=== PATIENT | female | born 1975 | race Caucasian/White ===

== ENCOUNTER 2022-06-24 13:14 | Inpatient (IN) | payer OTHER, SELFPAY ==
[2022-06-24] VITALS (8 sets, daily range): BP systolic 109–129; BP diastolic 55–80; PULSE 62–99; RESP 14–18; TEMP 36.2–37.3; O2SAT 97–100; BMI 22.8
--- NOTE | 2022-06-24 | ECG_ITS ---
Test Reason : palpatations Blood Pressure : / mmHG Vent. Rate : 099 BPM Atrial Rate : 099 BPM P-R Int : 132 ms QRS Dur : 096 ms QT Int : 348 ms P-R-T Axes : 062 001 028 degrees QTc Int : 446 ms Normal sinus rhythm Normal ECG No previous ECGs available Referred By: Generic ED Physician Electronically Signed By:CORTNEY LARSON MD
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
--- NOTE | 2022-06-24 17:55 | PC.NURSE ---
PATIENT IS VERY PARANOID ,WAS CHANGE OPVER INTO HOSPITAL ATTIRE BY THIS PCT ,1;1 SITTER AT BEDSIDE .
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
[2022-06-24 18:36] LABS: Appearance Urine CLEAR; Color Urine YELLOW; Glucose Urine UA NEG (NEG); Leukocyte Esterase Urine NEG (NEG); Nitrite Urine NEG (NEG); PH 5.5 (5.0-8.0); Specific Gravity - Urine <= 1.005 (1.005-1.025); Urine Blood NEG (NEG); Urine Ketones NEG (NEG); Urine Protein NEG (NEG-TRACE)
[2022-06-24 18:46] LABS: MANUAL DIFF FLAG NO
[2022-06-24 18:49] LABS: Basophils Percent Auto 0.6 % (0-2); Eosinophils Absolute Auto 0.1 X10*3/uL (0.0-0.4); Eosinophils Percent Auto 0.8 % (0-4); Hematocrit 36.1 % (37.0-47.0); Hemoglobin 12.2 g/dl (12.0-16.0); Imm Gran Abs Auto 0.02 X10*3/uL (0.00-0.03); Imm Gran Pct Auto 0.3 % (0.0-0.4); Lymphocytes Absolute Auto 2.6 X10*3/uL (1.2-4.9); Lymphocytes Percent Auto 36.4 % (20-40); Mean Corpuscular HGB Conc 33.8 g/dl (31.0-35.0); Mean Corpuscular Volume 88.7 fL (80.0-98.0); Mean Platelet Volume 9.4 fL (9.4-12.3); Monocytes Absolute Auto 0.5 X10*3/uL (0.1-1.2); Monocytes Percent Auto 6.6 % (2-11); Neutrophils Absolute Auto 3.9 x10*3/uL (2.0-8.3); Neutrophils Percent Auto 55.3 % (45-73); Platelet Count 306 X10*3/uL (160-400); Red Blood Count 4.07 X10*6/uL (4.20-5.50); Red Cell Distribution Width 13.1 % (11.0-16.0); White Blood Count 7.1 X10*3/uL (4.8-10.8)
[2022-06-24 19:00] LABS: Amphetamine Screen Urine POSITIVE (Not Detect); Barbiturates, Urine Not Detected (Not Detect); Benzodiazepines Screen Urine Not Detected (Not Detect); Cannabinoid Screen Urine Not Detected (Not Detect); Cocaine Screen Urine Not Detected (Not Detect); Fentanyl, urine Not Detected (Not Detect); Opiate Screen Urine Not Detected (Not Detect); Phencyclidine Screen Urine Not Detected (Not Detect)
[2022-06-24 19:02] LABS: Ammonia 19 umol/L (13-55)
[2022-06-24 19:16] LABS: Alanine Aminotransferase 13 U/L (0-31); Albumin Level 4.5 g/dL (3.5-5.0); Alkaline Phosphatase 81 U/L (39-117); Anion Gap 16 (12-20); Aspartate Amino Transferase 28 U/L (5-31); Bilirubin Direct < 0.2 mg/dL (0.0-0.5); Bilirubin Total 0.3 mg/dL (0.0-1.0); Blood Urea Nitrogen 6 mg/dL (9-16); Calcium 8.9 mg/dL (8.4-10.2); Carbon Dioxide 22 mmol/L (22-29); Chloride 103 mmol/L (96-108); Creatinine Clr Calc Pharmacy 76.8; Estimated Glomerular Filt Rate > 60; Glucose Random 98 mg/dL (60-115); Lipase 14 U/L (8-78); Potassium 4.2 mmol/L (3.3-5.1); Sodium 137 mmol/L (135-145); Total Protein 7.8 g/dL (6.5-8.0)
[2022-06-24 19:47] LABS: UPreg QC Valid YES; Urine Pregnancy NEGATIVE (NEGATIVE)
--- NOTE | 2022-06-24 20:00 | PC.NURSE ---
This nurse noted patient to escalate, yelling at sitter, becoming increasingly uncooperative, patient not willing to be redirected despite staff efforts. Patient moved to ED Behavioral pod for safety of staff/others and herself. Patient brought into sat down and attempted to be spoken to descalate but unwilling to calm down despite being offered less restrictive alternatives. Patient becoming a harm to herself and others.
[2022-06-24] MEDS: diphenhydrAMINE HCL 50 MG/ML VIAL 25 MG IM ×2 (20:05)
[2022-06-24] MEDS: Haloperidol Lactate 5 MG/ML VIAL IM (20:05)
[2022-06-24] MEDS: diazePAM 10 MG/2 ML CARTRIDGE 5 MG IM ×2 (20:05)
--- NOTE | 2022-06-24 20:05 | PC.NURSE ---
pt medicated per JAN orders, this nurse and MASTER PRINTER did note after administration of ordered medication a small amount of medication to seep through her hospital gown coming from te left thigh injection site. Will continue to monitor pt at this time. Hand off given to nurse Francesco and restraint flowsheet initiated.
[2022-06-24 21:14] LABS: COVID-19 Test Negative (Negative); IDNOW Serial# 9DB6401D
[2022-06-25] MEDS: traZODone HCL 100 MG TABLET PO (00:10)
[2022-06-25] MEDS: QUEtiapine Fumarate 25 MG TABLET PO ×2 (00:10→21:50)
[2022-06-25] MEDS: Gabapentin 600 MG TABLET PO ×4 (00:10→21:27)
[2022-06-25] MEDS: OLANZapine 5 MG TABLET PO (00:10)
[2022-06-25] MEDS: Buprenorphine HCL 8 MG TAB.SUBL SUBLINGUAL ×4 (00:13→21:28)
--- NOTE | 2022-06-25 07:04 | PC.NURSE ---
Patient S/P chemical restraint, slept through the night, no distress observed/reported, medication compliant, behavior erratic, verbally abusive, and unpredictable, thought content paranoid, [facility] referral completed/confirmed/pending YARI LANCASTER, will continue to monitor
--- NOTE | 2022-06-25 07:07 | PC.NURSE ---
patient appears to remain asleep at present respirations are even and unlabored patient appears in no distress
[2022-06-25 11:27] VITALS: RESP 18
[2022-06-25] MEDS: Mupirocin 2 % Oint 22 GM TUBE 1 APPL TOPICAL (11:49)
[2022-06-25] MEDS: Venlafaxine HCL 25 MG TABLET PO (11:49)
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
[2022-06-26 09:12] LABS: Estimated Average Glucose 88 mg/dL; Hemoglobin A1c % 4.7 %
[2022-06-26 09:31] LABS: Cholesterol 319 mg/dL; HDL Cholesterol 57 mg/dL; LDL Cholesterol Calculated 238 mg/dl; Magnesium 1.8 mg/dL (1.6-2.6); Triglycerides 120 mg/dL
[2022-06-26] MEDS: Venlafaxine HCL 25 MG TABLET PO (09:34)
[2022-06-26] MEDS: Buprenorphine HCL 8 MG TAB.SUBL SUBLINGUAL ×3 (09:34→20:48)
[2022-06-26] MEDS: Gabapentin 600 MG TABLET PO ×2 (09:34→20:47)
[2022-06-26 09:51] LABS: Free T4 (Free Thyroxine) 1.09 ng/dL (0.71-1.85); Thyroid Stimulating Hormone 0.26 uIU/mL (0.32-4.0)
[2022-06-26 10:07] LABS: Vitamin B12 592 pg/mL (200-900)
[2022-06-26] MEDS: QUEtiapine Fumarate 25 MG TABLET PO (10:07)
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
[2022-06-26] MEDS: Nicotine 21 MG PATCH.TD24 TRANSDERMA (13:17)
[2022-06-26] MEDS: Gabapentin 600 MG TABLET 900 MG PO (14:18)
[2022-06-26 17:38] VITALS: BP 111/60; PULSE 78; RESP 18; TEMP 37; O2SAT 98
[2022-06-26] MEDS: Mupirocin 2 % Oint 22 GM TUBE 1 APPL TOPICAL (21:31)
[2022-06-27] MEDS: traZODone HCL 100 MG TABLET PO ×2 (00:51→21:12)
[2022-06-27] MEDS: Gabapentin 600 MG TABLET PO ×2 (09:35→14:51)
[2022-06-27] MEDS: Venlafaxine HCL 25 MG TABLET PO (09:35)
[2022-06-27] MEDS: Nicotine 21 MG PATCH.TD24 TRANSDERMA (09:38)
[2022-06-27] MEDS: Buprenorphine HCL 8 MG TAB.SUBL SUBLINGUAL ×3 (09:38→20:02)
[2022-06-27] MEDS: Mupirocin 2 % Oint 22 GM TUBE 1 APPL TOPICAL ×2 (09:40→19:35)
[2022-06-27] MEDS: Acetaminophen 325 MG TABLET 650 MG PO ×2 (09:44→19:31)
[2022-06-27 09:51] VITALS: BP 124/55; PULSE 89; RESP 20; TEMP 36.2; O2SAT 98
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
[2022-06-27] MEDS: Gabapentin 600 MG TABLET 900 MG PO ×2 (19:32→21:10)
[2022-06-27 20:19] VITALS: BP 113/55; PULSE 62; TEMP 36.4
[2022-06-27] MEDS: OLANZapine 10 MG TABLET PO (21:11)
[2022-06-27] MEDS: Melatonin 3 MG TABLET 6 MG PO (21:12)
[2022-06-27] MEDS: QUEtiapine Fumarate 25 MG TABLET PO (21:16)
[2022-06-28] MEDS: Buprenorphine HCL 8 MG TAB.SUBL SUBLINGUAL ×3 (09:30→20:05)
[2022-06-28] MEDS: Venlafaxine HCL 25 MG TABLET PO (09:30)
[2022-06-28] MEDS: Dextroamphetamine/Amphetamine XR 10 MG CAP.ER.24H 30 MG PO ×2 (09:30→14:15)
[2022-06-28] MEDS: Gabapentin 600 MG TABLET 900 MG PO ×3 (09:31→20:03)
[2022-06-28] MEDS: Nicotine 21 MG PATCH.TD24 TRANSDERMA (09:35)
[2022-06-28 09:37] VITALS: BP 102/60; PULSE 92; RESP 16; TEMP 37; O2SAT 98
[2022-06-28] MEDS: Mupirocin 2 % Oint 22 GM TUBE 1 APPL TOPICAL ×2 (09:55→20:59)
[2022-06-28] MEDS: QUEtiapine Fumarate 25 MG TABLET PO ×3 (09:55→20:58)
[2022-06-28 18:37] VITALS: BP 120/60; PULSE 96; TEMP 36.5
[2022-06-28] MEDS: OLANZapine 10 MG TABLET PO (20:02)
[2022-06-28] MEDS: Melatonin 3 MG TABLET 6 MG PO (20:57)
[2022-06-28] MEDS: traZODone HCL 100 MG TABLET PO (20:58)
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
[2022-06-29] MEDS: Nicotine 21 MG PATCH.TD24 TRANSDERMA (08:31)
[2022-06-29] MEDS: QUEtiapine Fumarate 25 MG TABLET PO ×3 (08:31→21:45)
[2022-06-29] MEDS: Buprenorphine HCL 8 MG TAB.SUBL SUBLINGUAL ×3 (08:31→20:20)
[2022-06-29] MEDS: Venlafaxine HCL 25 MG TABLET PO (08:31)
[2022-06-29] MEDS: Dextroamphetamine/Amphetamine XR 10 MG CAP.ER.24H 30 MG PO ×2 (08:31→14:41)
[2022-06-29] MEDS: Gabapentin 600 MG TABLET 900 MG PO ×3 (08:31→20:20)
[2022-06-29] MEDS: Mupirocin 2 % Oint 22 GM TUBE 1 APPL TOPICAL ×2 (08:38→21:44)
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
[2022-06-29] MEDS: Milk of Magnesia 30 ML ORAL.SUSP PO (16:32)
[2022-06-29 18:00] VITALS: BP 118/58; PULSE 94; TEMP 36.1
[2022-06-29] MEDS: OLANZapine 10 MG TABLET PO (20:20)
[2022-06-29] MEDS: Melatonin 3 MG TABLET 6 MG PO (21:45)
[2022-06-29] MEDS: traZODone HCL 100 MG TABLET PO (21:45)
[2022-06-30 06:00] VITALS: BP 128/79; PULSE 90; TEMP 36.8; O2SAT 98
[2022-06-30] MEDS: Nicotine 21 MG PATCH.TD24 TRANSDERMA (08:23)
[2022-06-30] MEDS: QUEtiapine Fumarate 25 MG TABLET PO ×3 (08:23→21:09)
[2022-06-30] MEDS: Dextroamphetamine/Amphetamine XR 10 MG CAP.ER.24H 30 MG PO ×2 (08:23→13:56)
[2022-06-30] MEDS: Gabapentin 600 MG TABLET 900 MG PO ×3 (08:23→21:01)
[2022-06-30] MEDS: Venlafaxine HCL 25 MG TABLET PO (08:23)
[2022-06-30] MEDS: Buprenorphine HCL 8 MG TAB.SUBL SUBLINGUAL ×3 (08:28→21:08)
[2022-06-30] MEDS: Mupirocin 2 % Oint 22 GM TUBE 1 APPL TOPICAL ×2 (09:01→21:10)
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
[2022-06-30 18:00] VITALS: BP 120/78; PULSE 78; RESP 16; TEMP 36.6; O2SAT 99
[2022-06-30] MEDS: Melatonin 3 MG TABLET 6 MG PO (21:02)
[2022-06-30] MEDS: OLANZapine 10 MG TABLET PO (21:09)
[2022-07-01 06:00] VITALS: BP 103/56; PULSE 58; RESP 16; TEMP 36.2; O2SAT 94
[2022-07-01] MEDS: Dextroamphetamine/Amphetamine XR 10 MG CAP.ER.24H 30 MG PO ×2 (09:53→15:49)
[2022-07-01] MEDS: Gabapentin 600 MG TABLET 900 MG PO ×3 (09:53→21:28)
[2022-07-01] MEDS: Buprenorphine HCL 8 MG TAB.SUBL SUBLINGUAL ×3 (09:55→21:56)
[2022-07-01] MEDS: Venlafaxine HCL 25 MG TABLET PO (09:55)
[2022-07-01] MEDS: QUEtiapine Fumarate 25 MG TABLET PO ×3 (09:55→21:57)
[2022-07-01] MEDS: Nicotine 21 MG PATCH.TD24 TRANSDERMA (09:57)
[2022-07-01] MEDS: Mupirocin 2 % Oint 22 GM TUBE 1 APPL TOPICAL ×2 (09:59→21:58)
[2022-07-01] MEDS: Milk of Magnesia 30 ML ORAL.SUSP PO (10:11)
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
[2022-07-01 18:00] VITALS: BP 119/77; PULSE 83; RESP 18; TEMP 36.8
[2022-07-01] MEDS: OLANZapine 10 MG TABLET PO (21:28)
[2022-07-01] MEDS: Melatonin 3 MG TABLET 6 MG PO (21:56)
[2022-07-01] MEDS: traZODone HCL 100 MG TABLET PO (21:57)
[2022-07-02] MEDS: Dextroamphetamine/Amphetamine XR 10 MG CAP.ER.24H 30 MG PO ×2 (08:32→14:59)
[2022-07-02] MEDS: Venlafaxine HCL 25 MG TABLET PO (08:33)
[2022-07-02] MEDS: Gabapentin 600 MG TABLET 900 MG PO ×2 (08:33→15:00)
[2022-07-02] MEDS: Buprenorphine HCL 8 MG TAB.SUBL SUBLINGUAL ×2 (08:34→15:00)
[2022-07-02] MEDS: QUEtiapine Fumarate 25 MG TABLET PO ×2 (08:34→15:00)
[2022-07-02] MEDS: Nicotine 21 MG PATCH.TD24 TRANSDERMA (08:35)
[2022-07-02 08:39] VITALS: BP 86/51; PULSE 56; RESP 18; TEMP 36.5; O2SAT 96
[2022-07-02] MEDS: Mupirocin 2 % Oint 22 GM TUBE 1 APPL TOPICAL (11:24)
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
== END 2022-07-02 17:05 | DRG 751 ==
LOC: HO.ED 06-25 19:13 → HO.PM5 06-25 22:01
PROVIDERS: Nurse Practitioner Family; Admitting Provider Registered Nurse; Emergency Provider Internal Medicine; Visit Provider Clinical Nurse Specialist Psychiatric/Mental Health, Adult
DX: F23 Brief psychotic disorder (principal); Z20.822 Contact with and (suspected) exposure to COVID-19; Z88.0 Allergy status to penicillin; Z79.899 Other long term (current) drug therapy
CPT/HCPCS: 36415; 80048; 80061; 80076; 80307; 81003; 81025; 82140; 82607; 82746; 83036; 83690; 83735; 84439; 84443; 85025; 87635; 93005; 96372; 99285; J0571; J1200; J3360

== ENCOUNTER 2023-03-04 21:31 | Emergency (ER) | payer OTHER, SELFPAY ==
[2023-03-04 21:40] VITALS: BP 122/78; PULSE 67; RESP 18; TEMP 36.1; O2SAT 98; BMI 25.4
[2023-03-04 22:02] LABS: MANUAL DIFF FLAG NO
[2023-03-04 22:04] LABS: Basophils Absolute Auto 0.1 X10*3/uL (0.0-0.2); Basophils Percent Auto 0.7 % (0-2); Eosinophils Absolute Auto 0.1 X10*3/uL (0.0-0.4); Eosinophils Percent Auto 0.9 % (0-4); Hematocrit 36.4 % (37.0-47.0); Hemoglobin 12.6 g/dl (12.0-16.0); Imm Gran Abs Auto 0.04 X10*3/uL (0.00-0.03); Imm Gran Pct Auto 0.3 % (0.0-0.4); Lymphocytes Absolute Auto 2.2 X10*3/uL (1.2-4.9); Mean Corpuscular HGB Conc 34.6 g/dl (31.0-35.0); Mean Corpuscular Hemoglobin 29.8 pg (27.0-33.0); Mean Corpuscular Volume 86.1 fL (80.0-98.0); Mean Platelet Volume 10.1 fL (9.4-12.3); Monocytes Absolute Auto 0.7 X10*3/uL (0.1-1.2); Monocytes Percent Auto 4.9 % (2-11); Neutrophils Absolute Auto 10.4 x10*3/uL (2.0-8.3); Neutrophils Percent Auto 77.2 % (45-73); Platelet Count 383 X10*3/uL (160-400); Red Blood Count 4.23 X10*6/uL (4.20-5.50); Red Cell Distribution Width 13.5 % (11.0-16.0); White Blood Count 13.4 X10*3/uL (4.8-10.8)
[2023-03-04 22:19] LABS: Alanine Aminotransferase 23 U/L (0-31); Albumin Level 4.5 g/dL (3.5-5.0); Alkaline Phosphatase 89 U/L (39-117); Anion Gap 15 (12-20); Aspartate Amino Transferase 28 U/L (5-31); Bilirubin Total 0.7 mg/dL (0.0-1.0); Blood Urea Nitrogen 5 mg/dL (9-16); Calcium 9.6 mg/dL (8.4-10.2); Carbon Dioxide 25 mmol/L (22-29); Chloride 103 mmol/L (96-108); Creatinine Clr Calc Pharmacy 97.8; Estimated Glomerular Filt Rate > 60; Glucose Random 111 mg/dL (60-115); Potassium 3.6 mmol/L (3.3-5.1); Sodium 139 mmol/L (135-145); Total Protein 6.9 g/dL (6.5-8.0)
[2023-03-04 22:20] LABS: COVID-19 Test Negative (Negative); IDNOW Serial# BCCEAD1C
[2023-03-04 22:21] LABS: IDNOW Serial# 08D9AD1C; Influenza A Negative (Negative); Influenza B2 Negative (Negative)
--- NOTE | 2023-03-04 23:54 | PC.NURSE ---
pt reporting vague aches and pains across whole body unsure of how long they have been going on. Pt giving urine sample at this time
[2023-03-04 23:55] VITALS: BP 132/80; PULSE 71; RESP 15; TEMP 36.4; O2SAT 99
[2023-03-05 00:15] LABS: Appearance Urine Clear; Color Urine Yellow; Glucose Urine UA Negative (Negative); Leukocyte Esterase Urine Negative (Negative); Nitrite Urine Negative (Negative); Urine Blood Negative (Negative); Urine Ketones 40 mg/dL (Negative); Urine Protein Negative (Neg-Trace)
--- NOTE | 2023-03-05 00:50 | ED.GENADULT ---
HPI - General Adult General Chief complaint: General Medical Stated complaint: not specific, feeling ill. Time Seen by Provider: 03/05/23 00:31 Source: patient Mode of arrival: ambulatory Limitations: no limitations History of Present Illness HPI narrative: Patient with history of PTSD, depression, paranoid disorder and history of substance abuse on Suboxone comes here for multiple complaints , patient keeps changing her complaints nonspecific whole body complaints. Related Data Home Medications Medication Instructions Recorded Confirmed gabapentin 600 mg tablet 1 tab PO TID 06/24/22 06/24/22 hydroxyzine HCl 50 mg tablet 1 tab PO TID PRN Anxiety 06/24/22 06/24/22 mupirocin 2 % topical ointment 1 ea topical BID 06/24/22 06/24/22 trazodone 100 mg tablet 1 tab PO BEDTIME 06/24/22 06/24/22 venlafaxine 25 mg tablet 1 tab PO QAM 06/24/22 06/24/22 dextroamphetamine-amphetamine ER 1 cap PO BID 06/25/22 06/25/22 30 mg 24hr capsule,extend release (Adderall XR) gabapentin 300 mg capsule 1 cap PO TID 06/25/22 06/25/22 Previous Rx's Medication Instructions Recorded buprenorphine HCl 8 mg sublingual 1 tab sublingual TID 7 days #35 07/02/22 tablet tabs melatonin 3 mg tablet 6 mg PO BEDTIME #60 tabs 07/02/22 olanzapine 10 mg tablet 10 mg PO BEDTIME #30 tabs 07/02/22 quetiapine 25 mg tablet 25 mg PO TID #90 tabs 07/02/22 olanzapine 10 mg tablet 10 mg PO BEDTIME #30 tabs 07/04/22 Allergies Allergy/AdvReac Type Severity Reaction Status Date / Time Penicillins Allergy Unknown Verified 03/04/23 21:38 Review of Systems Review of Systems: Yes all other systems are reviewed and are negative PMFSH Past Medical History Medical History PTSD (post-traumatic stress disorder) Social History Social History Household Members: Other Household Members Other:: [employer] Housing: Assisted Living Facility Housing Other:: [facility] Do you presently have visiting nurse or other home services: No Patient Tobacco Use Status: Never used Tobacco e-Cigarette/Vaping Use: Never Used Second Hand Smoke Exposure: No Advance Directives: No Advance Directives Information Provided: Yes service: No Sexual orientation: Decline to Answer Physical Exam ED Vital Signs: Vital Signs - 24 hr 03/04/23 21:40 03/04/23 23:55 Temperature 96.9 F 97.6 F Pulse Rate 67 71 Respiratory Rate 18 15 Blood Pressure 122/78 132/80 Pulse Oximetry 98 99 Oxygen Delivery Method Room Air Room Air BMI result Body Mass Index 25.4 Appearance: Alert. Oriented X3. No acute distress. Eyes: PERRLA, No Nystagmus ENT: Pharynx normal. Oral Mucosa moist Neck: Normal inspection. Neck supple. CVS: Normal heart rate and rhythm. Pulses normal. Respiratory: No respiratory distress. Equal air entry bilateral, no wheezing/rales/rhonchi Abdomen: Soft and nontender. Bowel sounds are present, no mass palpable, no CVA tenderness Skin: Skin warm and dry. Normal skin color. Normal skin turgor. Extremities: No lower extremity edema. No calf tenderness psych: Mood stable patient frequently changing her complaints and story dilusional denies any hallucinations Neuro: Oriented X 3. No motor deficit. No sensory deficit.No cerebellar signs , cranial nerves II-XII intact Medical Decision Making Lab Data MDM Lab Attestation statement: I reviewed the patient's lab results. 03/04/23 21:59 03/04/23 21:59 Labs: Lab Results 03/04/23 03/04/23 03/04/23 Range/Units 21:59 21:59 21:59 WBC 13.4 H (4.8-10.8) X10*3/uL RBC 4.23 (4.20-5.50) X10*6/uL Hgb 12.6 (12.0-16.0) g/dl Hct 36.4 L (37.0-47.0) % MCV 86.1 (80.0-98.0) fL MCH 29.8 (27.0-33.0) pg MCHC 34.6 (31.0-35.0) g/dl RDW 13.5 (11.0-16.0) % Plt Count 383 D (160-400) X10*3/uL MPV 10.1 (9.4-12.3) fL Immature Gran % (Auto) 0.3 (0.0-0.4) % Neut % (Auto) 77.2 H (45-73) % Lymph % (Auto) 16.0 L (20-40) % Hubbard % (Auto) 4.9 (2-11) % Eos % (Auto) 0.9 (0-4) % Baso % (Auto) 0.7 (0-2) % Lymph # (Auto) 2.2 (1.2-4.9) X10*3/uL Hubbard # (Auto) 0.7 (0.1-1.2) X10*3/uL Eos # (Auto) 0.1 (0.0-0.4) X10*3/uL Baso # (Auto) 0.1 (0.0-0.2) X10*3/uL Abs Immat Gran (auto) 0.04 H (0.00-0.03) X10*3/uL Absolute Neuts (auto) 10.4 H (2.0-8.3) x10*3/uL Absolute Nucleated RBC 0.000 (0.0-0.012) X10*3/uL Nucleated RBC % (auto) 0.0 (0.0-0.2) /100WBC Sodium 139 (135-145) mmol/L Potassium 3.6 (3.3-5.1) mmol/L Chloride 103 (96-108) mmol/L Carbon Dioxide 25 (22-29) mmol/L Anion Gap 15 (12-20) BUN 5 L (9-16) mg/dL Creatinine 0.59 (0.5-1.4) mg/dL Estim Creat Clear Calc 97.8 Estimated GFR > 60 Random Glucose 111 (60-115) mg/dL Calcium 9.6 D (8.4-10.2) mg/dL Total Bilirubin 0.7 (0.0-1.0) mg/dL AST 28 (5-31) U/L ALT 23 (0-31) U/L Alkaline Phosphatase 89 (39-117) U/L Total Protein 6.9 (6.5-8.0) g/dL Albumin 4.5 (3.5-5.0) g/dL Urine Color Urine Appearance Urine pH (5.0-9.0) Ur Specific [place] (1.005-1.025) Urine Protein (Neg-Trace) mg/dL Urine Glucose (UA) (Negative) mg/dL Urine Ketones (Negative) mg/dL Urine Blood (Negative) Urine Nitrite (Negative) Ur Leukocyte Esterase (Negative) COVID-19 (MARISELA) (Negative) COVID-19 Clin Com Influenza Type A (ADDIE) Negative (Negative) Influenza Type B (ADDIE) Negative (Negative) Influenza A & B Note See Note 03/04/23 03/04/23 Range/Units 21:59 23:58 WBC (4.8-10.8) X10*3/uL RBC (4.20-5.50) X10*6/uL Hgb (12.0-16.0) g/dl Hct (37.0-47.0) % MCV (80.0-98.0) fL MCH (27.0-33.0) pg MCHC (31.0-35.0) g/dl RDW (11.0-16.0) % Plt Count (160-400) X10*3/uL MPV (9.4-12.3) fL Immature Gran % (Auto) (0.0-0.4) % Neut % (Auto) (45-73) % Lymph % (Auto) (20-40) % Hubbard % (Auto) (2-11) % Eos % (Auto) (0-4) % Baso % (Auto) (0-2) % Lymph # (Auto) (1.2-4.9) X10*3/uL Hubbard # (Auto) (0.1-1.2) X10*3/uL Eos # (Auto) (0.0-0.4) X10*3/uL Baso # (Auto) (0.0-0.2) X10*3/uL Abs Immat Gran (auto) (0.00-0.03) X10*3/uL Absolute Neuts (auto) (2.0-8.3) x10*3/uL Absolute Nucleated RBC (0.0-0.012) X10*3/uL Nucleated RBC % (auto) (0.0-0.2) /100WBC Sodium (135-145) mmol/L Potassium (3.3-5.1) mmol/L Chloride (96-108) mmol/L Carbon Dioxide (22-29) mmol/L Anion Gap (12-20) BUN (9-16) mg/dL Creatinine (0.5-1.4) mg/dL Estim Creat Clear Calc Estimated GFR Random Glucose (60-115) mg/dL Calcium (8.4-10.2) mg/dL Total Bilirubin (0.0-1.0) mg/dL AST (5-31) U/L ALT (0-31) U/L Alkaline Phosphatase (39-117) U/L Total Protein (6.5-8.0) g/dL Albumin (3.5-5.0) g/dL Urine Color Yellow Urine Appearance Clear Urine pH 6.0 (5.0-9.0) Ur Specific [place] 1.010 (1.005-1.025) Urine Protein Negative (Neg-Trace) mg/dL Urine Glucose (UA) Negative (Negative) mg/dL Urine Ketones 40 (Negative) mg/dL Urine Blood Negative (Negative) Urine Nitrite Negative (Negative) Ur Leukocyte Esterase Negative (Negative) COVID-19 (MARISELA) Negative (Negative) COVID-19 Clin Com See Note Influenza Type A (ADDIE) (Negative) Influenza Type B (ADDIE) (Negative) Influenza A & B Note Discharge Plan Discharge Clinical Impression: PTSD (post-traumatic stress disorder), Paranoid disorder Patient Disposition: Home, Self-Care Instructions: Post Traumatic Stress Disorder (ED), Psychotic Disorder (ED) Additional Instructions: Continue taking medication and follow-up with your psychiatrist/therapist Prescriptions: No Action gabapentin 600 mg tablet 1 tab PO TID venlafaxine 25 mg tablet 1 tab PO QAM mupirocin 2 % ointment 1 ea topical BID hydroxyzine HCl 50 mg tablet 1 tab PO TID PRN (Reason: Anxiety) trazodone 100 mg tablet 1 tab PO BEDTIME gabapentin 300 mg capsule 1 cap PO TID dextroamphetamine-amphetamine [Adderall XR] 30 mg capsule,extended release 24hr 1 cap PO BID quetiapine 25 mg Tablet 25 mg PO TID Qty: 90 0RF olanzapine 10 mg Tablet 10 mg PO BEDTIME Qty: 30 0RF melatonin 3 mg Tablet 6 mg PO BEDTIME Qty: 60 0RF buprenorphine HCl 8 mg tablet, sublingual 1 tab sublingual TID 7 Days Qty: 35 0RF olanzapine 10 mg tablet 10 mg PO BEDTIME Qty: 30 0RF Interventions: ED Discharge Assessment Last Done: 03/05/23 01:09 Discharge Date/Time: 03/05/23 01:10
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
== END 2023-03-05 01:10 | disposition home or self-care (01) ==
PROVIDERS: Emergency Provider Internal Medicine
DX: F43.10 Post-traumatic stress disorder, unspecified (principal); F23 Brief psychotic disorder; Z20.822 Contact with and (suspected) exposure to COVID-19; Z20.828 Contact with and (suspected) exposure to other viral communicable diseases; Z79.899 Other long term (current) drug therapy
CPT/HCPCS: 80053; 81003; 85025; 87502; 87635; 99283

== ENCOUNTER 2023-03-21 20:10 | Emergency (ER) | payer OTHER, SELFPAY ==
--- NOTE | ~2023-03-21 | XR_ITS ---
EXAMINATION: XR CHEST CLINICAL INFORMATION: Chest pain COMPARISON: None available. TECHNIQUE: Frontal view of the chest was obtained. FINDINGS: No significant abnormality is noted involving the heart, lungs, mediastinum, bony thorax or soft tissues. XR/XR chest 1V IMPRESSION: Unremarkable examination.
[2023-03-21 20:21] VITALS: BP 138/86; PULSE 101; RESP 16; TEMP 37.4; O2SAT 97; BMI 23.4
--- NOTE | 2023-03-21 20:26 | ED.GENADULT ---
HPI - General Adult General Chief complaint: Chest Pain <KAMAR Carmichael - Last Filed: 03/21/23 20:31> Stated complaint: chest pain <KAMAR Carmichael - Last Filed: 03/21/23 20:31> Time Seen by Provider: 03/21/23 21:20 <KAMAR Carmichael - Last Filed: 03/21/23 20:31> Source: patient, RN notes reviewed and old records reviewed <LANA Weller - Last Filed: 03/22/23 00:42> History of Present Illness HPI narrative: 47-year-old female with past medical history of PTSD, psychotic disorder is here today for complaining of palpitations. Patient states that she came to [place] on the bus, started walking and reports that she developed chest pressure and palpitations. Patient denies presyncope, syncope, SOB with or without exertion. Patient denies any nausea or vomiting. Patient denies any abdominal pain or discomfort. <LANA Weller - Last Filed: 03/22/23 00:42> Related Data Home medications: Home Medications Medication Instructions Recorded Confirmed gabapentin 600 mg tablet 1 tab PO TID 06/24/22 06/24/22 hydroxyzine HCl 50 mg tablet 1 tab PO TID PRN Anxiety 06/24/22 06/24/22 mupirocin 2 % topical ointment 1 ea topical BID 06/24/22 06/24/22 trazodone 100 mg tablet 1 tab PO BEDTIME 06/24/22 06/24/22 venlafaxine 25 mg tablet 1 tab PO QAM 06/24/22 06/24/22 dextroamphetamine-amphetamine ER 1 cap PO BID 06/25/22 06/25/22 30 mg 24hr capsule,extend release (Adderall XR) gabapentin 300 mg capsule 1 cap PO TID 06/25/22 06/25/22 Previous Rx's Medication Instructions Recorded buprenorphine HCl 8 mg sublingual 1 tab sublingual TID 7 days #35 07/02/22 tablet tabs melatonin 3 mg tablet 6 mg PO BEDTIME #60 tabs 07/02/22 olanzapine 10 mg tablet 10 mg PO BEDTIME #30 tabs 07/02/22 quetiapine 25 mg tablet 25 mg PO TID #90 tabs 07/02/22 olanzapine 10 mg tablet 10 mg PO BEDTIME #30 tabs 07/04/22 <KAMAR Carmichael - Last Filed: 03/21/23 20:31> Allergies/adverse reactions: Allergies Allergy/AdvReac Type Severity Reaction Status Date / Time Penicillins Allergy Unknown Verified 03/04/23 21:38 <KAMAR Carmichael - Last Filed: 03/21/23 20:31> Review of Systems Review of Systems: Constitutional : No Weight loss, No Fever, No Chills, No Night Sweats, No Fatigue, No Malaise ENT/Mouth : No Hearing loss, No Ear Pain, No Nasal Congestion, No Sinus Pain, No Hoarseness, No sore throat, No Rhinorrhea, No Swallowing Difficulty Eyes: No Eye Pain, No Swelling, No Redness, No Foreign Body, No Discharge, No Vision Changes Cardiovascular : No Chest Pain, No SOB, No Dyspnea on Exertion, No Orthopnea, No Edema, Palpitations Respiratory : No Cough, No Sputum, No Wheezing, No Smoke Exposure, No Dyspnea Gastrointestinal : No Nausea, No Vomiting, No Diarrhea, No Constipation, No abdominal Pain, No Hematochezia, No Melena Genitourinary : no irregular bleeding, No Dysuria, No Urinary Frequency, No Hematuria, No Urinary Incontinence, No Urgency, No Flank Pain, No Urinary Flow Changes, No Hesitancy Musculoskeletal : No joint pain, No Myalgias, No Joint Swelling Skin : No Skin Lesions, No rash Neuro : No Weakness, No Numbness, No Paresthesias, No Loss of Consciousness, No Dizziness, No Headache Psych : No Anxiety/Panic, No Depression, No SI/HI/AH/VH, No Social Issues, Heme/Lymph: No Bruising, No Bleeding,No Lymphadenopathy Endocrine : No Polyuria, No Polydipsia, No Temperature Intolerance <LANA Weller - Last Filed: 03/22/23 00:42> Yes all other systems are reviewed and are negative <LANA Weller - Last Filed: 03/22/23 00:42> FOR[facility]LY [facility] Past Medical History Medical History: Medical History PTSD (post-traumatic stress disorder) <KAMAR Carmichael Last Filed: 03/21/23 20:31> Social History Social History: Social History Household Members: Other Household Members Other:: [employer] Housing: Assisted Living Facility Housing Other:: [facility] Do you presently have visiting nurse or other home services: No Alcohol intake: never Patient Tobacco Use Status: Never used Tobacco Smoked in Last 30 Days: Yes e-Cigarette/Vaping Use: Never Used Second Hand Smoke Exposure: No Use of substances other than those prescribed or required for medical reasons: No Advance Directives: No Advance Directives Information Provided: Yes Patient : No service: No Sexual orientation: Decline to Answer <KAMAR Carmichael - Last Filed: 03/21/23 20:31> Physical Exam ED Vital Signs: Vital Signs - 24 hr 03/21/23 20:21 03/21/23 22:00 Temperature 99.3 F Pulse Rate 101 H Respiratory Rate 16 16 Blood Pressure 138/86 134/72 Pulse Oximetry 97 Oxygen Delivery Method Room Air BMI result Body Mass Index 23.4 <KAMAR Carmichael - Last Filed: 03/21/23 20:31> Vital Signs - 24 hr 03/21/23 20:21 03/21/23 22:00 Temperature 99.3 F Pulse Rate 101 H Respiratory Rate 16 16 Blood Pressure 138/86 134/72 Pulse Oximetry 97 Oxygen Delivery Method Room Air BMI result Body Mass Index 23.4 <NORA Weller-BC - Last Filed: 03/22/23 00:42> Appearance: Alert. Oriented X3. No acute distress. Eyes: PERRLA, No Nystagmus ENT: Pharynx normal. Oral Mucosa moist Neck: Normal inspection. Neck supple. CVS: Normal heart rate and rhythm. Pulses normal. Respiratory: No respiratory distress. Equal air entry bilateral, no wheezing/rales/rhonchi Abdomen: Soft and nontender. Bowel sounds are present, no mass palpable, no CVA tenderness Skin: Skin warm and dry. Normal skin color. Normal skin turgor. Extremities: No lower extremity edema. No calf tenderness psych: Mood stable patient frequently changing her complaints and story dilusional denies any hallucinations Neuro: Oriented X 3. No motor deficit. No sensory deficit.No cerebellar signs , cranial nerves II-XII intact <LANA Weller - Last Filed: 03/22/23 00:42> Course Course Course Narrative: This is an RME: Additional HPI, ROS, PE not included below will be deferred to primary provider. This is a 23-[id number]-female, with no reported past medical history, who presents to the emergency department for palpitations while she was walking which started today. No chest pain, shortness of breath. She denies hx of similar symptoms in the past. VSS, pt stable to return to the waiting room until treatment room becomes available. Plan: EKG and labs ordered. <KAMAR Carmichael - Last Filed: 03/21/23 20:31> Reevaluation(s) Reevaluation #1: Chest x-ray, EKG and all labs are reviewed and are normal. Patient reports that she does not have anyone to pick her up. Patient will be discharged home to waiting room to wait dry. <LANA Weller - Last Filed: 03/22/23 00:42> Medical Decision Making Lab Data MDM Lab Attestation statement: I reviewed the patient's lab results. <LANA Weller - Last Filed: 03/22/23 00:42> Result Diagrams: 03/21/23 20:54 03/21/23 20:54 <KAMAR Carmichael - Last Filed: 03/21/23 20:31> Labs: Lab Results 03/21/23 03/21/23 03/21/23 Range/Units 20:54 20:54 20:54 WBC 14.1 H (4.8-10.8) X10*3/uL RBC 4.78 (4.20-5.50) X10*6/uL Hgb 14.3 (12.0-16.0) g/dl Hct 43.0 (37.0-47.0) % MCV 90.0 (80.0-98.0) fL MCH 29.9 (27.0-33.0) pg MCHC 33.3 (31.0-35.0) g/dl RDW 13.6 (11.0-16.0) % Plt Count 393 (160-400) X10*3/uL MPV 9.8 (9.4-12.3) fL Immature Gran % (Auto) 0.4 (0.0-0.4) % Neut % (Auto) 68.5 (45-73) % Lymph % (Auto) 24.0 (20-40) % [place] % (Auto) 6.1 (2-11) % Eos % (Auto) 0.6 (0-4) % Baso % (Auto) 0.4 (0-2) % Lymph # (Auto) 3.4 (1.2-4.9) X10*3/uL [place] # (Auto) 0.9 (0.1-1.2) X10*3/uL Eos # (Auto) 0.1 (0.0-0.4) X10*3/uL Baso # (Auto) 0.1 (0.0-0.2) X10*3/uL Abs Immat Gran (auto) 0.05 H (0.00-0.03) X10*3/uL Absolute Neuts (auto) 9.6 H (2.0-8.3) x10*3/uL Absolute Nucleated RBC 0.000 (0.0-0.012) X10*3/uL Nucleated RBC % (auto) 0.0 (0.0-0.2) /100WBC Sodium 140 (135-145) mmol/L Potassium 3.7 (3.3-5.1) mmol/L Chloride 103 (96-108) mmol/L Carbon Dioxide 24 (22-29) mmol/L Anion Gap 17 (12-20) BUN 13 (9-16) mg/dL Creatinine 0.74 (0.5-1.4) mg/dL Estim Creat Clear Calc 66.7 Estimated GFR > 60 Random Glucose 102 (60-115) mg/dL Calcium 10.1 (8.4-10.2) mg/dL Troponin I High Sens 3.8 (<3.5-17.0) ng/L <KAMAR Carmichael - Last Filed: 03/21/23 20:31> Lab Results 03/21/23 03/21/23 03/21/23 Range/Units 20:54 20:54 20:54 WBC 14.1 H (4.8-10.8) X10*3/uL RBC 4.78 (4.20-5.50) X10*6/uL Hgb 14.3 (12.0-16.0) g/dl Hct 43.0 (37.0-47.0) % MCV 90.0 (80.0-98.0) fL MCH 29.9 (27.0-33.0) pg MCHC 33.3 (31.0-35.0) g/dl RDW 13.6 (11.0-16.0) % Plt Count 393 (160-400) X10*3/uL MPV 9.8 (9.4-12.3) fL Immature Gran % (Auto) 0.4 (0.0-0.4) % Neut % (Auto) 68.5 (45-73) % Lymph % (Auto) 24.0 (20-40) % [place] % (Auto) 6.1 (2-11) % Eos % (Auto) 0.6 (0-4) % Baso % (Auto) 0.4 (0-2) % Lymph # (Auto) 3.4 (1.2-4.9) X10*3/uL [place] # (Auto) 0.9 (0.1-1.2) X10*3/uL Eos # (Auto) 0.1 (0.0-0.4) X10*3/uL Baso # (Auto) 0.1 (0.0-0.2) X10*3/uL Abs Immat Gran (auto) 0.05 H (0.00-0.03) X10*3/uL Absolute Neuts (auto) 9.6 H (2.0-8.3) x10*3/uL Absolute Nucleated RBC 0.000 (0.0-0.012) X10*3/uL Nucleated RBC % (auto) 0.0 (0.0-0.2) /100WBC Sodium 140 (135-145) mmol/L Potassium 3.7 (3.3-5.1) mmol/L Chloride 103 (96-108) mmol/L Carbon Dioxide 24 (22-29) mmol/L Anion Gap 17 (12-20) BUN 13 (9-16) mg/dL Creatinine 0.74 (0.5-1.4) mg/dL Estim Creat Clear Calc 66.7 Estimated GFR > 60 Random Glucose 102 (60-115) mg/dL Calcium 10.1 (8.4-10.2) mg/dL Troponin I High Sens 3.8 (<3.5-17.0) ng/L <LANA Weller - Last Filed: 03/22/23 00:42> Independent Interpretation I performed an independent interpretation of an: EKG <LANA Weller - Last Filed: 03/22/23 00:42> Radiology Impression Discussion of test interpretation with radiology: I have reviewed the radiologist's reading. <LANA Weller - Last Filed: 03/22/23 00:42> Radiologist Impression: CHEST X-RAY FINDINGS: No significant abnormality is noted involving the heart, lungs, mediastinum, bony thorax or soft tissues. XR/XR chest 1V IMPRESSION: Unremarkable examination. ?T <LANA Weller - Last Filed: 03/22/23 00:42> Discharge Plan Discharge Clinical Impression: Palpitations <KAMAR Carmichael - Last Filed: 03/21/23 20:31> Patient Disposition: Home, Self-Care <KAMAR Carmichael - Last Filed: 03/21/23 20:31> Instructions: Heart Palpitations (ED) <KAMAR Carmichael - Last Filed: 03/21/23 20:31> Additional Instructions: You were seen here today for palpitation. All your tests are negative for any acute findings. Please make sure that you drink plenty fluids. Please follow-up with your primary care provider and return to emergency department if you will experience worsening symptoms or any additional concerning symptoms. <KAMAR Carmichael - Last Filed: 03/21/23 20:31> Prescriptions: No Action gabapentin 600 mg tablet 1 tab PO TID venlafaxine 25 mg tablet 1 tab PO QAM mupirocin 2 % ointment 1 ea topical BID hydroxyzine HCl 50 mg tablet 1 tab PO TID PRN (Reason: Anxiety) trazodone 100 mg tablet 1 tab PO BEDTIME gabapentin 300 mg capsule 1 cap PO TID dextroamphetamine-amphetamine [Adderall XR] 30 mg capsule,extended release 24hr 1 cap PO BID quetiapine 25 mg Tablet 25 mg PO TID Qty: 90 0RF olanzapine 10 mg Tablet 10 mg PO BEDTIME Qty: 30 0RF melatonin 3 mg Tablet 6 mg PO BEDTIME Qty: 60 0RF buprenorphine HCl 8 mg tablet, sublingual 1 tab sublingual TID 7 Days Qty: 35 0RF olanzapine 10 mg tablet 10 mg PO BEDTIME Qty: 30 0RF <KAMAR Carmichael - Last Filed: 03/21/23 20:31>
--- NOTE | 2023-03-21 20:28 | ECG_ITS ---
Test Reason : CHEST PAIN Blood Pressure : / mmHG Vent. Rate : 099 BPM Atrial Rate : 099 BPM P-R Int : 124 ms QRS Dur : 100 ms QT Int : 354 ms P-R-T Axes : 044 -06 007 degrees QTc Int : 454 ms Normal sinus rhythm Possible Left atrial enlargement Incomplete right bundle branch block Minimal voltage criteria for LVH, may be normal variant ( R in aVL ) Cannot rule out Anterior infarct , age undetermined Abnormal ECG When compared with ECG of 24-JUN-2022 15:17, Incomplete right bundle branch block is now Present Inverted T waves have replaced nonspecific T wave abnormality in Inferior leads Referred By: Generic ED Physician Electronically Signed By:Oliverio Post
[2023-03-21 20:58] LABS: MANUAL DIFF FLAG NO
[2023-03-21 21:00] LABS: Basophils Absolute Auto 0.1 X10*3/uL (0.0-0.2); Basophils Percent Auto 0.4 % (0-2); Eosinophils Absolute Auto 0.1 X10*3/uL (0.0-0.4); Eosinophils Percent Auto 0.6 % (0-4); Hemoglobin 14.3 g/dl (12.0-16.0); Imm Gran Abs Auto 0.05 X10*3/uL (0.00-0.03); Imm Gran Pct Auto 0.4 % (0.0-0.4); Lymphocytes Absolute Auto 3.4 X10*3/uL (1.2-4.9); Mean Corpuscular HGB Conc 33.3 g/dl (31.0-35.0); Mean Corpuscular Hemoglobin 29.9 pg (27.0-33.0); Mean Platelet Volume 9.8 fL (9.4-12.3); Monocytes Absolute Auto 0.9 X10*3/uL (0.1-1.2); Monocytes Percent Auto 6.1 % (2-11); Neutrophils Absolute Auto 9.6 x10*3/uL (2.0-8.3); Neutrophils Percent Auto 68.5 % (45-73); Platelet Count 393 X10*3/uL (160-400); Red Blood Count 4.78 X10*6/uL (4.20-5.50); Red Cell Distribution Width 13.6 % (11.0-16.0); White Blood Count 14.1 X10*3/uL (4.8-10.8)
[2023-03-21 21:07] VITALS: PULSE 75
[2023-03-21 21:11] LABS: Anion Gap 17 (12-20); Blood Urea Nitrogen 13 mg/dL (9-16); Calcium 10.1 mg/dL (8.4-10.2); Carbon Dioxide 24 mmol/L (22-29); Chloride 103 mmol/L (96-108); Creatinine Clr Calc Pharmacy 66.7; Estimated Glomerular Filt Rate > 60; Glucose Random 102 mg/dL (60-115); Potassium 3.7 mmol/L (3.3-5.1); Sodium 140 mmol/L (135-145)
[2023-03-21 21:19] LABS: Troponin-I High Sensitivity 3.8 ng/L (<3.5-17.0)
[2023-03-21 22:00] VITALS: BP 134/72; RESP 16
== END 2023-03-22 01:06 | disposition home or self-care (01) ==
PROVIDERS: Emergency Provider Internal Medicine
DX: R00.2 Palpitations (principal); Z79.899 Other long term (current) drug therapy
CPT/HCPCS: 36415; 71045; 80048; 84484; 85025; 93005; 99283; 99285